=== PATIENT | female | born 1930 | race Caucasian/White ===

== ENCOUNTER 2016-12-14 18:59 | Emergency (ER) | payer MEDICARE, OTHER | END 2016-12-14 21:04 | disposition home or self-care (01) | LOC: FER 18:59 | DX: K59.00 Constipation, unspecified (principal); K64.9 Unspecified hemorrhoids; Z85.79 Personal history of other malignant neoplasms of lymphoid, hematopoietic and related tissues; Z79.899 Other long term (current) drug therapy; Z98.890 Other specified postprocedural states | CPT/HCPCS: 99283 ==